=== PATIENT | female | born 1985 | race Caucasian/White ===

== ENCOUNTER → 2022-08-24 15:27 | Outpatient (BNVA) | payer OTHER, SELFPAY | PROVIDERS: PCP Internal Medicine; Visit Provider Physician Assistant Surgical ==

== ENCOUNTER → 2022-08-30 08:08 | Outpatient (BNVA) | payer OTHER, SELFPAY | PROVIDERS: PCP Internal Medicine; Visit Provider Surgery ==

== ENCOUNTER 2022-08-31 16:01 | Outpatient (REF) | payer OTHER, SELFPAY ==
--- NOTE | ~2022-08-31 | XR_ITS ---
EXAMINATION: XR CHEST CLINICAL INFORMATION: Morbid/severe obesity due to excess calories COMPARISON: None available. TECHNIQUE: 2 views of the chest were obtained. FINDINGS: No significant abnormality is noted involving the heart, lungs, mediastinum, bony thorax or soft tissues. XR/XR chest 2V IMPRESSION: Unremarkable chest examination.
[2022-08-31 16:18] LABS: MANUAL DIFF FLAG NO
[2022-08-31 16:59] LABS: Basophils Percent Auto 0.5 % (0-2); Eosinophils Absolute Auto 0.2 X10*3/uL (0.0-0.4); Eosinophils Percent Auto 1.9 % (0-4); Hematocrit 34.7 % (37.0-47.0); Hemoglobin 11.7 g/dl (12.0-16.0); Imm Gran Abs Auto 0.03 X10*3/uL (0.00-0.03); Imm Gran Pct Auto 0.3 % (0.0-0.4); Lymphocytes Absolute Auto 2.4 X10*3/uL (1.2-4.9); Lymphocytes Percent Auto 27.2 % (20-40); Mean Corpuscular HGB Conc 33.7 g/dl (31.0-35.0); Mean Corpuscular Hemoglobin 30.9 pg (27.0-33.0); Mean Corpuscular Volume 91.6 fL (80.0-98.0); Monocytes Absolute Auto 0.4 X10*3/uL (0.1-1.2); Monocytes Percent Auto 4.6 % (2-11); Neutrophils Absolute Auto 5.7 x10*3/uL (2.0-8.3); Neutrophils Percent Auto 65.5 % (45-73); Platelet Count 235 X10*3/uL (160-400); Red Blood Count 3.79 X10*6/uL (4.20-5.50); Red Cell Distribution Width 12.8 % (11.0-16.0); White Blood Count 8.6 X10*3/uL (4.8-10.8)
[2022-08-31 17:06] LABS: Estimated Average Glucose 111 mg/dL; Hemoglobin A1c % 5.5 %
[2022-08-31 17:30] LABS: Alanine Aminotransferase 14 U/L (0-31); Albumin Level 4.1 g/dL (3.5-5.0); Alkaline Phosphatase 77 U/L (39-117); Anion Gap 10 (12-20); Aspartate Amino Transferase 19 U/L (5-31); Bilirubin Total 0.4 mg/dL (0.0-1.0); Blood Urea Nitrogen 11 mg/dL (9-16); C Reactive Protein 1.49 mg/dL (< or = 0.50); Calcium 9.2 mg/dL (8.4-10.2); Carbon Dioxide 28 mmol/L (22-29); Chloride 104 mmol/L (96-108); Cholesterol 224 mg/dL; Estimated Glomerular Filt Rate > 60; Glucose Random 95 mg/dL (60-115); HDL Cholesterol 46 mg/dL; Iron 49 mcg/dL (30-160); LDL Cholesterol Calculated 151 mg/dl; Percent Iron Saturation 17 % (15-50); Potassium 4.2 mmol/L (3.3-5.1); Sodium 138 mmol/L (135-145); Total Iron Binding Capacity 287 mcg/dL (228-428); Total Protein 7.3 g/dL (6.5-8.0); Triglycerides 139 mg/dL; Unsaturated Iron Binding 238 ug/dL
[2022-08-31 17:57] LABS: Ferritin 60 ng/mL (10-122); Folate 14.3 ng/mL (> or = 4.0); Insulin 13 uU/mL (2-29); TSH reflex Free T4 4.01 uIU/mL (0.32-4.0); Vitamin B12 619 pg/mL (200-900); Vitamin D 25-OH Total 34.1 ng/mL (>30)
[2022-09-01 16:13] LABS: PTHI 39 pg/mL (16-77)
[2022-09-04 04:49] LABS: Zinc 60 mcg/dL (60-130)
[2022-09-04 16:53] LABS: Vitamin B1 14 nmol/L (8-30)
[2022-09-07 11:53] LABS: Vitamin A 47 mcg/dL (38-98)
== END 2022-08-31 16:02 | disposition home or self-care (01) ==
LOC: HO.LAB 16:01
PROVIDERS: PCP Internal Medicine; Visit Provider Surgery
DX: E66.01 Morbid (severe) obesity due to excess calories (principal); K21.9 Gastro-esophageal reflux disease without esophagitis; I10 Essential (primary) hypertension; J45.909 Unspecified asthma, uncomplicated
CPT/HCPCS: 36415; 71046; 80053; 80061; 82306; 82607; 82728; 82746; 83036; 83525; 83540; 83970; 84425; 84439; 84443; 84590; 84630; 85025; 86140

== ENCOUNTER → 2022-09-01 15:33 | Outpatient (REF) | payer OTHER, SELFPAY | LOC: HO.CARD 15:33 | PROVIDERS: PCP Internal Medicine; Visit Provider Surgery | DX: Z13.89 Encounter for screening for other disorder (principal) ==

== ENCOUNTER → 2022-09-14 13:14 | Outpatient (BNVA) | payer OTHER, SELFPAY | PROVIDERS: PCP Internal Medicine; Visit Provider Dietitian, Registered | DX: E66.01 Morbid (severe) obesity due to excess calories (principal) | CPT/HCPCS: 97802; 99211 ==

== ENCOUNTER 2022-09-14 19:27 | Outpatient (REF) | payer OTHER, SELFPAY ==
[2022-09-16 14:55] LABS: H Pylori Breath Test Negative (Negative)
== END 2022-09-14 19:28 | disposition home or self-care (01) ==
LOC: HO.LNP 19:27
PROVIDERS: Visit Provider Surgery
DX: E66.01 Morbid (severe) obesity due to excess calories (principal); J45.909 Unspecified asthma, uncomplicated; K21.9 Gastro-esophageal reflux disease without esophagitis; I10 Essential (primary) hypertension
CPT/HCPCS: 83013

== ENCOUNTER → 2022-09-17 15:52 | Outpatient (BNVA) | payer OTHER, SELFPAY | PROVIDERS: PCP Internal Medicine; Visit Provider Counselor Mental Health ==

== ENCOUNTER → 2022-09-20 16:09 | Outpatient (BNVA) | payer OTHER, SELFPAY | PROVIDERS: PCP Internal Medicine; Visit Provider Counselor Mental Health ==

== ENCOUNTER → 2022-10-01 08:12 | Outpatient (BNVA) | payer OTHER, SELFPAY | PROVIDERS: PCP Internal Medicine; Visit Provider Surgery ==

== ENCOUNTER 2022-11-01 15:30 | Outpatient (AMB) | payer OTHER, SELFPAY ==
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
== END 2022-11-01 16:16 | disposition home or self-care (01) ==
LOC: HO.HBST 15:43
PROVIDERS: PCP Internal Medicine; Visit Provider Counselor Mental Health
DX: F90.9 Attention-deficit hyperactivity disorder, unspecified type (principal); F43.10 Post-traumatic stress disorder, unspecified; F41.9 Anxiety disorder, unspecified; F32.A Depression, unspecified
CPT/HCPCS: 90832

== ENCOUNTER → 2022-11-01 15:30 | Outpatient (BNVA) | payer OTHER, SELFPAY | PROVIDERS: PCP Internal Medicine; Visit Provider Counselor Mental Health ==

== ENCOUNTER → 2022-11-03 09:23 | Outpatient (REF) | payer OTHER, SELFPAY | LOC: HO.CARD 09:23 | PROVIDERS: PCP Internal Medicine; Visit Provider Surgery | DX: E66.01 Morbid (severe) obesity due to excess calories (principal); I10 Essential (primary) hypertension; J45.909 Unspecified asthma, uncomplicated; K21.9 Gastro-esophageal reflux disease without esophagitis | CPT/HCPCS: 93005 ==

== ENCOUNTER 2022-11-04 09:16 | Outpatient (REF) | payer OTHER, SELFPAY ==
--- NOTE | ~2022-11-04 | US_ITS ---
EXAMINATION: US COMPLETE ABDOMEN WITH LIVER ELASTOGRAPHY CLINICAL INFORMATION: Morbid obesity COMPARISON: None available. TECHNIQUE: Real-time imaging of the abdominal viscera. Noninvasive ultrasound liver fibrosis assessment is performed using Mercedes ElastPQ point quantification shear wave elastography (2D-SWE) with a C5-2 MHz transducer. Multiple elastography samples are obtained. FINDINGS: PANCREAS: Normal. The visualized pancreatic head and body are normal in appearance. The remainder of the pancreas is obscured from visualization by the overlying bowel gas. ABDOMINAL AORTA: The proximal, middle, and distal aortic segments are normal in caliber. INFERIOR VENA CAVA: Visualized portions are normal. LIVER: There is hepatomegaly present. Echogenicity appears unremarkable. No focal mass or intrahepatic bile duct dilatation is seen. The right lobe measures 20 cm in length. The left lobe measures 14 cm in length. Portal flow is hepatopedal. Shear wave liver elastography median stiffness is 2.08 m/s (reference: normal median stiffness is 1.3 m/s or less). IQR/median stiffness to assess sampling precision is 0.08 (reference: good quality data set is IQR/median stiffness of 0.15 or less). GALLBLADDER: Normal. The gallbladder is physiologically distended without evidence of stones, sludge, polyps, wall thickening or pericholecystic fluid. COMMON BILE DUCT: Normal in caliber measuring 0.5 cm in diameter. RIGHT KIDNEY: Normal. No hydronephrosis. No renal calculi or focal parenchymal lesions. The kidney measures 10.7 cm in maximum dimension. LEFT KIDNEY: No renal mass or hydronephrosis. No calculi identified. Normal echogenicity. The kidney measures 12.2 cm in maximum dimension. SPLEEN: Splenomegaly is present.. The spleen measures 16.9 cm in maximum dimension. FREE FLUID: None. US/US abdomen comp w elastography IMPRESSION: 1. Hepatosplenomegaly. 2. Liver elastography: Measurements are suggestive of compensated advanced chronic liver disease but need further test for confirmation. REFERENCE: Society of Radiologists in Ultrasound Liver Stiffness Thresholds (2020): LIVER STIFFNESS THRESHOLDS: *Liver Stiffness equal or less than 1.3 m/s: High probability of being normal. *Liver Stiffness less than 1.7 m/s: In the absence of other known clinical signs, rules out compensated advanced chronic liver disease. *Liver Stiffness 1.7-2.1 m/s: Suggestive of compensated advanced chronic liver disease but need further test for confirmation. *Liver Stiffness over 2.1 m/s: Rules in compensated advanced chronic liver disease. *Liver Stiffness over 2.4 m/s: Suggestive of clinically significant portal hypertension. QUALITY OF DATA SET: *IQR/Median value equal or less than 0.15 implies a quality data set. *IQR/Median value over 0.15 implies a poor quality data set. SIGNIFICANT CHANGE FROM PRIOR EXAM: Significant change if liver stiffness measurement is 10% or greater from prior exam. OTHER CONSIDERATIONS: The stage of liver fibrosis may be overestimated in the setting of acute hepatitis, liver inflammation, elevated liver function tests, hepatic vascular congestion, obstructive cholestasis, non-fasting state, and infiltrative diseases such as amyloidosis and lymphoma. In some patients with NAFLD, the liver stiffness thresholds for compensated advanced chronic liver disease may be lower. In causes other than viral hepatitis and NAFLD, liver stiffness thresholds are not well established.
== END 2022-11-04 09:17 | disposition home or self-care (01) ==
LOC: HO.US 09:16
PROVIDERS: PCP Internal Medicine; Visit Provider Surgery
DX: E66.01 Morbid (severe) obesity due to excess calories (principal); I10 Essential (primary) hypertension; J45.909 Unspecified asthma, uncomplicated; K21.9 Gastro-esophageal reflux disease without esophagitis
CPT/HCPCS: 76705; 76981

== ENCOUNTER 2024-11-02 17:55 | Emergency (ER) | payer OTHER, SELFPAY ==
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
[2024-11-02 18:26] VITALS: BMI 30.4
--- NOTE | 2024-11-02 18:35 | PC.NURSE ---
pt states she just planned to off herself but didn't have an acual plan. children are with their aunt who called 911 today.
[2024-11-02 18:57] LABS: MANUAL DIFF FLAG NO
[2024-11-02 19:05] LABS: Hematocrit 38.8 % (37.0-47.0); Hemoglobin 14.3 g/dl (12.0-16.0); Imm Gran Abs Auto 0.01 X10*3/uL (0.00-0.03); Imm Gran Pct Auto 0.2 % (0.0-0.4); Lymphocytes Absolute Auto 3.2 X10*3/uL (1.2-4.9); Mean Corpuscular HGB Conc 36.9 g/dl (31.0-35.0); Mean Corpuscular Hemoglobin 35.3 pg (27.0-33.0); Mean Corpuscular Volume 95.8 fL (80.0-98.0); NRBC Abs Auto 0.000 X10*3/uL (0.0-0.012); NRBC Pct Auto 0.0 /100WBC (0.0-0.2); Platelet Count 257 X10*3/uL (160-400); Red Blood Count 4.05 X10*6/uL (4.20-5.50); White Blood Count 6.2 X10*3/uL (4.8-10.8)
[2024-11-02 19:10] LABS: Cannabinoid Screen Urine POSITIVE (Not Detect)
[2024-11-02 19:13] LABS: Alanine Aminotransferase 42 U/L (0-31); Albumin Level 4.7 g/dL (3.5-5.0); Alkaline Phosphatase 81 U/L (39-117); Anion Gap 17 (12-20); Aspartate Amino Transferase 42 U/L (5-31); Blood Urea Nitrogen 5 mg/dL (9-16); Calcium 8.9 mg/dL (8.4-10.2); Carbon Dioxide 25 mmol/L (22-29); Chloride 110 mmol/L (96-108); Creatinine Clr Calc Pharmacy 111.5; Estimated Glomerular Filt Rate > 60; Potassium 3.2 mmol/L (3.3-5.1); Sodium 149 mmol/L (135-145); Total Protein 7.5 g/dL (6.5-8.0)
[2024-11-02 19:23] LABS: Acetaminophen LAB < 3 mcg/mL (<30); Salicylate < 5.0 mg/dL (15-30)
[2024-11-02 19:24] LABS: Appearance Urine Clear; Glucose Urine UA Negative (Negative); PH 6.5 (5.0-9.0); Specific Gravity - Urine <= 1.005 (1.005-1.025); UPreg QC Valid YES
[2024-11-02 19:30] LABS: COVID-19 Test Negative (Negative); IDNOW Serial# 55D5AD1C
[2024-11-02] MEDS: Nicotine 14 MG PATCH.TD24 TRANSDERMA (19:40)
--- NOTE | 2024-11-02 20:16 | PC.NURSE ---
upon arrival this cliet seemed disinhibited, loud and redirectable swearing to family members/friends on phone. forgetful. will continue to monitor carea team assessment pending
[2024-11-02 21:40] VITALS: BP 103/54; PULSE 66; RESP 16; TEMP 37.1; O2SAT 97
--- NOTE | 2024-11-02 21:48 | PHA.MEDREC ---
Pharmacy Consult ? Medication Reconciliation Pharmacy has completed the medication reconciliation. REVIEWED MED REC DONE BY NURSING. CONFIRMED TIMING OF MIRTAZAPINE WITH RN MAZIN.
[2024-11-03] VITALS (8 sets, daily range): BP systolic 114–162; BP diastolic 64–87; PULSE 61–120; RESP 14–20; TEMP 36.1–37.1; O2SAT 96–99
--- NOTE | 2024-11-03 01:37 | PC.NURSE ---
late entry- patient awakened and asked to leave was medicated with select medications for bedtime, asked for ambien which isnt a current medication for her. medicated with no issues
[2024-11-03] MEDS: buPROPion HCl XL 300 MG TAB.ER.24H PO (09:28)
[2024-11-03] MEDS: Dextroamphetamine/Amphetamine XR 5 MG CAP.ER.24H 25 MG PO (09:29)
--- NOTE | 2024-11-03 09:56 | PC.NURSE ---
awake, denies daily etoh, 2 days of drinking, never had withdrawal, denies withdrawl symptoms, denies si and wants to go home, pending care team eval, got a couple calls from mother and her baby's daddy and spoke with them calmly on the phone, medicated as ordered, skin wpd, steady gait, speech clear, no tremors
[2024-11-03] MEDS: Potassium Chloride Packet 20 MEQ PACKET 40 MEQ PO (11:14)
--- NOTE | 2024-11-03 13:06 | MHC.EDTECH ---
Patient requesting shower. This tech supplied necessary items. Patient ambulated with steady gait to bathroom. All current needs met.
--- NOTE | 2024-11-03 13:06 | PC.NURSE ---
pt was surprised to hear that she was a sect 12 bed search, I sat and spoke with the pt for several minutes explaining. Génesis from CARE team did as well. pt initially upset and stating that this will make things worse for her but pt remained respectful to staff and stayed in behavioral control. I offered her prn ativan and she accepted, verbal order taken from Dr Poole and ordered in computer and given. pt now taking a shower after eating lunch
[2024-11-03] MEDS: Nicotine 14 MG PATCH.TD24 TRANSDERMA (13:51)
--- NOTE | 2024-11-03 19:22 | PC.NURSE ---
patient appears to remain at rest presently respirations are even and unlabored patien t appears in no distress
[2024-11-04 06:12] VITALS: RESP 16
--- NOTE | 2024-11-04 08:18 | PC.NURSE ---
Pt requesting to be re-evaluated by care team stating she wants to be DC'd; will let care team know of her request when they arrive; pt informed that she is currently under a section 12 and an inpt bed search
[2024-11-04] MEDS: buPROPion HCl XL 300 MG TAB.ER.24H PO (09:35)
[2024-11-04] MEDS: Dextroamphetamine/Amphetamine XR 5 MG CAP.ER.24H 25 MG PO (09:35)
[2024-11-04 09:36] VITALS: BP 162/87; PULSE 61
--- NOTE | 2024-11-04 09:39 | PC.NURSE ---
Pt medicated for back pain per orders; MD and care team speaking with pt to discuss DC home
[2024-11-04 09:59] VITALS: BP 148/79; PULSE 64; RESP 18; TEMP 36.5; O2SAT 99
--- NOTE | 2024-11-04 10:39 | MHC.CARE ---
Message left for pt's psychiatrist Ms. Reema Hood, advising her that pt presented to the ED and has been discharged. May require additional support.
--- NOTE | 2024-11-04 10:54 | MHC.CARE ---
Pt has been referred to [facility] for a 3 day follow up and was asked to be placed on a 7 day alert.
== END 2024-11-04 10:01 | disposition home or self-care (01) ==
PROVIDERS: Physician Assistant Medical; Emergency Provider Internal Medicine
DX: F32.A Depression, unspecified (principal); F10.920 Alcohol use, unspecified with intoxication, uncomplicated; Y90.8 Blood alcohol level of 240 mg/100 ml or more; E87.6 Hypokalemia; R45.851 Suicidal ideations; F90.9 Attention-deficit hyperactivity disorder, unspecified type; F43.10 Post-traumatic stress disorder, unspecified; I10 Essential (primary) hypertension; E03.9 Hypothyroidism, unspecified; K21.9 Gastro-esophageal reflux disease without esophagitis; J45.909 Unspecified asthma, uncomplicated; Z79.899 Other long term (current) drug therapy; Z72.89 Other problems related to lifestyle; Z65.3 Problems related to other legal circumstances; Z11.52 Encounter for screening for COVID-19
CPT/HCPCS: 80053; 80143; 80179; 80307; 81003; 81025; 85025; 87635; 99285; S9485

== ENCOUNTER 2025-02-18 17:00 | Emergency (ER) | payer OTHER, SELFPAY ==
--- NOTE | ~2025-02-18 | XR_ITS ---
CLINICAL HISTORY: trauma 3 view left foot Comparison: None provided Findings: Bones intact. No dislocations. Calcaneal enthesophyte. No ankle effusion. No radiopaque foreign body. There is soft tissue edema. IMPRESSION: No acute fracture. This document has been electronically signed by: Preethi Coulter MD on 02/18/2025 19:14:12
[2025-02-18 17:13] VITALS: BP 140/63; PULSE 80; RESP 18; TEMP 36.6; O2SAT 97; BMI 34.5
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
[2025-02-18 19:48] VITALS: BP 140/63; PULSE 80; RESP 18; TEMP 36.6; O2SAT 97
--- OUTSIDE RECORDS SUMMARY | 2025-02-18 21:08 | XMS_ITS | Clinical Summary ---
Author Organization [facility] Address [address] [place], [place] [id number] Phone Care Team Providers Care Java Programmer Name Role Phone Pcp, Unknown Primary Care Provider Unavailabl e Allergies No known active allergies Medications FLUoxetine (PROZAC) 20 MG capsule Take 20 mg by mouth daily. Active buPROPion (WELLBUTRIN SR) 150 MG SR 12 hr tablet Take 150 mg by mouth 2 (two) times a day. Active cloNIDine HCl (CATAPRES) 0.1 MG tablet Take 0.1 mg by mouth nightly at bedtime. Active cyclobenzaprine (FLEXERIL) 5 MG tablet Take 1 tablet (5 mg total) by mouth 2 (two) times a day as needed (pain). 10 tablet 05/01/2019 Active Social History Tobacco Use Types Packs/Day Years Used Date Smoking Tobacco: Unknown Alcohol Use Standard Drinks/Week Comments Yes 0 (1 standard drink = 0.6 oz pur e alcohol) Education Answer Date Recorded Are you interested in more education? Not on [place] e 08/27/2022 Are you concerned about learning? Not on file 08/27/2022 No 08/27/2022 No 08/27/2022 Digital Access Answer Date Recorded No 09/28/2022 No 09/28/2022 Reliable internet access at home? Not on file 09/28/2022 Device with a working camera? Not on file Comments Unknown Sex and Gender Information Value Date Recorded Sex Assigned at Not on file Legal Sex Female 4:30 PM EST Gender Identity Not on file Sexual Orientation Not on file Last Filed Vital Signs Vital Sign Reading Time Taken Comments Blood Pressure 115/78 05/01/2019 4:41 PM EST Pulse 58 05/01/2019 4:41 PM EST Temperature 36.8 C (98.2 F) 05/01/2019 4:41 PM EST Respiratory Rate 16 05/01/2019 4:41 PM EST Oxygen Saturation 98% 05/01/2019 4:41 PM EST Inhaled Oxygen Concentration - - Weight 101.2 kg (223 lb) 05/01/2019 4:41 PM EST Height 170.2 cm (5' 7 ) 05/01/2019 4:41 PM EST Body Mass Index 34.93 05/01/2019 4:41 PM EST Plan of Treatment Not on file Medical Devices Not on file Insurance [employer] [place] [employer] [place] [employer] [employer] [address] [place] [address] [employer] [place] [employer] [place] [employer] Member Subscriber Plan / Payer (Ef fective 2019-Present) Name:Trina Farfan Relation to Subscriber:Self Name:Trina Farfan Payer ID:[id number] Group ID:[id number] Type:Medicaid Address: [place] [id number] [employer] [facility] [employer] Care Teams Java Programmer Relationship Specialty Start Date End Date Pcp, Unknown PCP - General 05/01/19 Additional Source Comments The information contained in this document represents components of the legal health record. It is not the complete legal health record.[facility]
== END 2025-02-18 19:48 | disposition home or self-care (01) ==
PROVIDERS: Emergency Provider Emergency Medicine Emergency Medical Services; PCP Nurse Practitioner Family
DX: S90.32XA Contusion of left foot, initial encounter (principal); W20.8XXA Other cause of strike by thrown, projected or falling object, initial encounter; Y93.9 Activity, unspecified; Y92.69 Other specified industrial and construction area as the place of occurrence of the external cause; Y99.0 Civilian activity done for income or pay
CPT/HCPCS: 73630; 99282; 99283

== ENCOUNTER → 2025-02-18 17:14 | Outpatient (BNV) | payer OTHER, SELFPAY | PROVIDERS: Emergency Provider Emergency Medicine Emergency Medical Services; PCP Nurse Practitioner Family; Visit Provider Nuclear Medicine | DX: Z04.3 Encounter for examination and observation following other accident (principal) | CPT/HCPCS: 73630 ==